=== PATIENT | female | born 1975 | race American Indian/Alaskan Native ===

== ENCOUNTER 2021-11-26 11:00 | Outpatient (CLI) | payer MEDICAID ==
--- NOTE | 2021-11-26 13:26 | XRay Report ---
METASTATIC BONE SURVEY 17 VIEWS INDICATION/CLINICAL INFORMATION: JOINT PAIN COMPARISON: CTA chest from 10/02/2021. FINDINGS: BONES AND JOINTS: No suspicious lucent or lytic lesion. No acute displaced fracture or dislocation. G eneralized mild cervical, thoracic and lumbar spondylosis is noted. There is mild osteoarthritis of t he hips with sclerotic and lucent changes noted along the femoral heads, right greater than left, whi ch are concerning for avascular necrosis. Mild osteoarthritis is seen along the knees. SOFT TISSUES: No acute abnormality. ADDITIONAL FINDINGS: IMPRESSION: 1. No radiographic evidence of bone lesions concerning for malignancy. 2. 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 3. Degenerative changes as above. Signer Name: Dominic Estrada MD Signed: 11/26/2021 1:22 PM Workstation Name: [id number]
== END 2021-11-26 11:01 | disposition home or self-care (01) ==
LOC: XRAY 11:00
PROVIDERS: ATTEND Internal Medicine Hematology & Oncology
DX: M17.0 Bilateral primary osteoarthritis of knee (principal); M16.0 Bilateral primary osteoarthritis of hip; M47.815 Spondylosis without myelopathy or radiculopathy, thoracolumbar region; M47.812 Spondylosis without myelopathy or radiculopathy, cervical region
CPT/HCPCS: 77074; 77075

== ENCOUNTER 2022-01-23 09:05 | Outpatient (CLI) | payer MEDICAID ==
--- NOTE | 2022-01-23 11:47 | Ultrasound Report ---
ULTRASOUND PELVIS INDICATION / CLINICAL INFORMATION: N92.0. TECHNIQUE: Transabdominal and Transvaginal. Duplex Color Doppler used: Yes. COMPARISON: None available FINDINGS: UTERUS: - Appearance: Slightly heterogeneous echotexture. - Size (cm): 7.8 x 3.7 x 3.9 - Endometrial Complex (if present): No significant abnormality. Thickness in cm (if measured) = 0.6 - Mass or cyst: There are several fundal fibroids measuring up to 1.5 cm each. - Additional findings: None. RIGHT ADNEXA: The right ovary measures 2.6 x 2.3 x 2.3 cm and has a simple cyst measuring up to 1.9 c m. Normal color Doppler blood flow. LEFT ADNEXA: The left ovary measures 3.2 x 1.5 x 3.0 cm and has a simple cyst measuring up to 2.3 cm. Normal color Doppler blood flow. URINARY BLADDER: No significant abnormality. FREE FLUID: None. ADDITIONAL FINDINGS: None. IMPRESSION: 1. Uterine fibroids. 2. Bilateral ovarian cysts. Signer Name: Matti Trejo DO Signed: 01/23/2022 10:15 AM Workstation Name: [id number]
== END 2022-01-23 09:06 | disposition home or self-care (01) ==
LOC: US 09:05
PROVIDERS: ATTEND Internal Medicine Hematology & Oncology
DX: D25.9 Leiomyoma of uterus, unspecified (principal); N92.0 Excessive and frequent menstruation with regular cycle; N83.202 Unspecified ovarian cyst, left side; N83.201 Unspecified ovarian cyst, right side
CPT/HCPCS: 76830; 76856

== ENCOUNTER 2022-08-11 14:08 | Emergency (ER) | payer MEDICAID | END 2022-08-12 14:34 | LOC: ED 14:08 | DX: Z01.00 Encounter for examination of eyes and vision without abnormal findings (principal); Z53.21 Procedure and treatment not carried out due to patient leaving prior to being seen by health care provider ==